=== PATIENT | female | born 1980 ===

== ENCOUNTER 2017-09-03 11:01 | Emergency (ER) | payer BC ==
[2017-09-03 11:15] VITALS: BMI 31.1
[2017-09-03 11:22] VITALS: RESP 18
--- NOTE | 2017-09-03 12:06 | ED PDOC ---
Arrival/HPI - General Chief Complaint: Trauma Time Seen by Provider: 09/03/17 11:23 Historian: Patient, Other (Patient's boss) - History of Present Illness Time/Duration: Prior to Arrival Symptom Onset: Sudden Symptom Course: Unchanged Quality: Aching Severity Level: Moderate Associated Symptoms (Text): 09/03/17 12:04 Patient was at work just prior to arrival and slipped on a wet floor falling backwards directly onto her buttocks and sacrum. No head trauma. No neck pain. No back pain. No extremity trauma. Past Medical History - Infectious Disease Hx of Infectious Diseases: None - Psychiatric Hx Substance Use: No - Surgical History Hx Section: Yes (x1) - Anesthesia Hx Anesthesia Reactions: No Hx Malignant Hyperthermia: No Family/Social History - Physician Review Nursing Documentation Reviewed: Yes Family/Social History: Unknown Family HX Smoking Status: Never Smoked Hx Alcohol Use: No Hx Substance Use: No Allergies/Home Meds Allergies/Adverse Reactions: Allergies No Known Allergies Allergy (Verified 09/03/17 11:15) Review of Systems - Physician Review All systems were reviewed & negative as marked: Yes - Review of Systems Respiratory: Normal Cardiovascular: Normal Gastrointestinal: Normal Genitourinary Female: Normal Neurological: Normal Physical Exam Vital Signs Temp Pulse Resp BP Pulse Ox 09/03/17 12:25 84 18 103/69 100 09/03/17 11:02 98.7 F 91 H 18 101/67 100 Temperature: Afebrile Blood Pressure: Normal Pulse: Regular Respiratory Rate: Normal Appearance: Positive for: Well-Appearing, Non-Toxic, Uncomfortable Pain Distress: Moderate Mental Status: Positive for: Alert and Oriented X 3 - Systems Exam Head: Present: Atraumatic, Normocephalic Neck: Present: Normal Range of Motion. No: Meningeal Signs, MIDLINE TENDERNESS , Paraspinal Tenderness Back: Present: Normal Inspection, Other (Left greater than right buttocks tenderness. No swelling or skin changes. Sacral tenderness. No swelling or skin changes.). No: CVA Tenderness, Midline Tenderness, Paraspinal Tenderness, Pain with Leg Raise Upper Extremity: Present: Normal Inspection. No: Cyanosis, Edema Lower Extremity: Present: Normal Inspection. No: Edema Neurological: Present: GCS=15, CN II-XII Intact, Speech Normal, Motor Func Grossly Intact Skin: Present: Warm, Dry, Normal Color. No: Rashes Medical Decision Making - RAD Interpretation Radiology Orders: 09/03/17 11:38 PELVIS ONE VIEW [RAD] Stat SACRUM &/or COCCYX (MIN 2VW) [RAD] Stat X-ray pelvis and sacrum show no fracture or dislocation. Program Officer: ED Physician - Medication Orders Current Medication Orders: Discontinued Medications Ketorolac Tromethamine (Toradol) 30 mg IM ONCE ONE Stop: 09/03/17 11:46 Last Admin: 09/03/17 11:47 Dose: 30 mg MAR Pain Assessment Document 09/03/17 11:47 SRE (Rec: 09/03/17 11:48 SRE [id number]) Pain Reassessment Is this a pain reassessment? Yes Sleep Is patient sleeping during reassessment? No Location Pain Location Body Site Lumbar Description Description Intermittent IM Administration Charges Document 09/03/17 11:47 SRE (Rec: 09/03/17 11:48 SRE [id number]) Charges for Administration # of IM Administrations 1 Disposition/Present on Arrival - Present on Arrival Any Indicators Present on Arrival: No History of DVT/PE: No History of Uncontrolled Diabetes: No Urinary Catheter: No History of Decub. Ulcer: No History Surgical Site Infection Following: None - Disposition Have Diagnosis and Disposition been Completed?: Yes Diagnosis: Contusion of buttock Disposition: HOME/ ROUTINE Disposition Time: 12:43 Patient Plan: Discharge Condition: GOOD Discharge Instructions (ExitCare): Coccyx Injury (DC), Contusion (DC) Additional Instructions: Rest and ice. Follow-up with PMD. Follow up in ER as needed. Prescriptions: Tramadol HCl [Ultram] 50 mg PO Q6 PRN #10 tab PRN Reason: Pain Referrals: Earl Barrientos MD [Primary Care Provider] - Follow up with primary Forms: [employer] ([place]), WORK NOTE
[2017-09-03 12:37] VITALS: BP 103/69; PULSE 84
[2017-09-03 13:30] VITALS: TEMP 98.2
--- NOTE | 2017-09-03 13:30 | RAD ---
PROCEDURE: Radiographs of the pelvis. HISTORY: Trauma COMPARISON: Correlation made with concurrent radiographs of the sacrum FINDINGS: BONES: Previously suspected minimally displaced fracture of the distal sacral and/or proximal coccygeal segment not appreciated on this frontal projection. Please refer to concurrent radiographs of the sacrum and corresponding report for additional details JOINTS: Sacroiliac Joints: Unremarkable. Pubic Symphysis: Unremarkable. OTHER FINDINGS: None. IMPRESSION: Previously suspected minimally displaced fracture of the distal sacral and/or proximal coccygeal segment not appreciated on this frontal projection. Please refer to concurrent radiographs of the sacrum and corresponding report for additional details
--- NOTE | 2017-09-03 13:31 | RAD ---
PROCEDURE: Radiographs of the Sacrum and Coccyx HISTORY: trauma COMPARISON: None available. TECHNIQUE: Frontal and lateral views of the sacrum and coccyx FINDINGS: BONES: Previously suspected minimally displaced fracture of the distal sacral and/or proximal coccygeal segment not appreciated on this frontal projection. . Note that this is seen only on the lateral projection. Please refer to concurrent radiographs of the sacrum and corresponding report for additional details . SACROILIAC JOINTS: Unremarkable. OTHER FINDINGS: None. IMPRESSION: Previously suspected minimally displaced fracture of the distal sacral and/or proximal coccygeal segment not appreciated on this frontal projection. . Note that this is seen only on the lateral projection. Please refer to concurrent radiographs of the sacrum and corresponding report for additional details . This report was placed in PA review folder for followup
[2017-09-03 13:33] VITALS: O2SAT 98
== END 2017-09-03 12:55 | disposition home or self-care (01) ==
LOC: ED 11:01
DX: S30.0XXA Contusion of lower back and pelvis, initial encounter (principal); W01.0XXA Fall on same level from slipping, tripping and stumbling without subsequent striking against object, initial encounter
CPT/HCPCS: 72170; 72220; 96372; 99284; J1885